=== PATIENT | female | born 1990 | race American Indian/Alaskan Native ===

== ENCOUNTER 2020-10-24 03:31 | Observation (INO) | payer OTHER ==
[2020-10-24 04:09] VITALS: BP 119/67
[2020-10-24] MEDS ORDERED: LACTATED RINGERS 1,000 ML IV ONE (04:19)
[2020-10-24 07:12] LABS: Bacteria,Urine 4+ /HPF (Negative); Bilirubin,Urine NEG (Negative); Blood,Urine SM (Negative); Color,Urine Yellow (Yellow); Hyaline Casts,Urine 3 /LPF; Mucus,Urine FEW /HPF; Urobilinogen,Urine < 2.0 mg/dL (<2.0)
== END 2020-10-24 10:08 | disposition home or self-care (01) ==
LOC: TRG 03:31 → APU 03:41 → TRG 04:19
PROVIDERS: ADMIT Obstetrics & Gynecology; ATTEND Obstetrics & Gynecology
DX: O99.891 Other specified diseases and conditions complicating pregnancy (principal); M54.9 Dorsalgia, unspecified; R10.9 Unspecified abdominal pain; O99.342 Other mental disorders complicating pregnancy, second trimester; F32.9 Major depressive disorder, single episode, unspecified; Z3A.20 20 weeks gestation of pregnancy
CPT/HCPCS: 81001; 96365; G0378; J0690; J7120; 96360